=== PATIENT | female | born 1960 | race Caucasian/White ===

== ENCOUNTER 2021-04-21 12:45 | Emergency (ER) | payer OTHER ==
[~2021-04-21] VITALS: Ht 157.5 cm; Wt 90.7 kg
[2021-04-21 13:12] VITALS: BP 115/39
--- NOTE | 2021-04-21 13:19 | NUR ---
PT SENT TO LOBBY
[2021-04-21] MEDS ORDERED: DIPH-1463 PO (14:33)
[2021-04-21] MEDS ORDERED: ALUM355S59 PO (14:33)
[2021-04-21] MEDS ORDERED: LIDO15SO PO (14:33)
--- NOTE | 2021-04-21 14:45 | NUR ---
NO NURSING INTERVENTIONS PERFORMED.
--- NOTE | 2021-04-21 14:56 | NUR ---
Patient discharged with v/s stable. Written and verbal after care instructions given and explained. Patient alert, oriented and verbalized understanding of instructions. Ambulatory with steady gait. All questions addressed prior to discharge. ID band removed. Patient advised to follow up with PMD. Rx of Mag/Hydrox/Al Hydrox/Simeth, Diphenhydramine, Lidocaine Hcl given. Patient educated on indication of medication including possible reaction and side effects. Opportunity to ask questions provided and answered.
== END 2021-04-21 14:56 | disposition home or self-care (01) ==
LOC: MED 12:45
DX: R07.0 Pain in throat (principal); K21.9 Gastro-esophageal reflux disease without esophagitis; Z79.899 Other long term (current) drug therapy
CPT/HCPCS: 99283

== ENCOUNTER 2022-10-18 21:46 | Emergency (ER) | payer OTHER ==
[~2022-10-18] VITALS: Ht 157.5 cm; Wt 90.7 kg
[~2022-10-18 21:46] MED LIST: ALUM355S59 PO; DIPH-1463 PO; LIDO15SO PO
[2022-10-18 22:20] VITALS: BP 162/100
--- NOTE | 2022-10-18 22:23 | NUR ---
TO LOBBY A/W BED AMBULATORY
[2022-10-19] MEDS ORDERED: MUC600 PO (00:22)
[2022-10-19] MEDS ORDERED: BENZ-300 PO (00:22)
[2022-10-19] MEDS ORDERED: AMOX500C25 PO (00:22)
[2022-10-19 00:37] VITALS: BP 162/100
--- NOTE | 2022-10-19 00:37 | NUR ---
Patient discharged with v/s stable. Written and verbal after care instructions given and explained. Patient alert, oriented and verbalized understanding of instructions. Ambulatory with steady gait. All questions addressed prior to discharge. ID band removed. Patient advised to follow up with PMD. Rx of AMOXICILLIN, CEPACOL, MUCINEX given. Patient educated on indication of medication including possible reaction and side effects. Opportunity to ask questions provided and answered.
== END 2022-10-19 00:37 | disposition home or self-care (01) ==
LOC: MED 21:46
DX: B34.9 Viral infection, unspecified (principal); Z20.822 Contact with and (suspected) exposure to COVID-19; H66.92 Otitis media, unspecified, left ear; Z79.899 Other long term (current) drug therapy
CPT/HCPCS: 87081; 99283